=== PATIENT | male | born 1990 | race Hispanic/Latino ===

== ENCOUNTER 2022-12-03 16:52 | Inpatient (IN) | payer SELFPAY ==
[~2022-12-03] VITALS: Ht 165.1 cm; Wt 81.2 kg
[2022-12-03] VITALS (8 sets, daily range): BP systolic 110–140; BP diastolic 65–103
--- NOTE | 2022-12-03 17:20 | NUR ---
PATIENT ARRIVED BY EMS TO ROOM 15. NORMAL SALINE INITIATED.
[2022-12-03 17:24] LABS: BASO% 0.4 % (0-3); EOS% 0.9 % (0-8); HEMATOCRIT 41.8 % (39.0-50.0); HEMOGLOBIN 13.5 g/dl (14.0-18.0); IMMATURE GRANULOCYTES 4.5 % (0.0-5.0); LYMPH% 16.3 % (15-41); MEAN CELL VOLUME 80.2 fL CALC (80.0-100.0); MEAN CORPUSCULAR HGB 25.9 pG CALC (26.0-32.0); MEAN CORPUSCULAR HGB CONC 32.3 g/dL CAL (32.0-36.0); MONO% 6.3 % (2-13); NEUT# 5.67 thou/uL (1.82-7.42); NEUT% 71.6 % (42-76); RED BLOOD COUNT 5.21 mill/uL (4.70-6.10); RED CELL DISTRI WIDTH 14.1 % (11.5-15.5)
[2022-12-03 17:34] LABS: ALBUMIN 4.4 g/dL (3.2-5.0); ALKALINE PHOSPHATASE 70 u/l (38-126); ANION GAP 16 (6-22 (CALC)); BUN 10 mg/dL (9-20); BUN/CREATININE RATIO 9 (12-20 (CALC)); CARBON DIOXIDE 20 mmol/l (22-30); CHLORIDE 109 mmol/l (95-108); CPK 403 u/l (55-170); CREATININE 1.1 mg/dL (0.7-1.3); GFR FOR AFR.AMER. > 60 ML/MIN (>=60 (CALC)); GFR OTHER RACES > 60 ML/MIN (>=60 (CALC)); POTASSIUM 3.8 mmol/l (3.5-5.1); SGOT/AST 85 u/l (17-59); SODIUM 141 mmol/l (137-146); TOTAL PROTEIN 7.4 g/dL (6.3-8.2)
--- NOTE | 2022-12-03 18:29 | NUR ---
SECOND LITER OF NS OUMAR AT THIS TIME. PATIENT IS MORE COMFORTABLE.
--- NOTE | 2022-12-03 19:00 | NUR ---
REPORT RECEIVED FROM CASSANDRA SLOAN. ASSESSED AND PT C/O BILATERAL LOWER EXTREMITIES ARE STILL CRAMPING AND CAUSING PAIN, MD MADE AWARE. PT ON MONITOR WITH VSS. WILL CONTINUE TO MONITOR.
[2022-12-03 19:22] LABS: URINE BILIRUBIN - DIPSTICK NEGATIVE (NEGATIVE); URINE COLOR YELLOW; URINE GLUCOSE - DIPSTICK NEGATIVE (NEGATIVE); URINE KETONE NEGATIVE (NEGATIVE)
[2022-12-03 19:23] LABS: URINE BLOOD DIPSTICK SMALL (NEGATIVE); URINE LEUK ESTERASE NEGATIVE (NEGATIVE); URINE NITRITE - DIPSTICK NEGATIVE (Negative); URINE PH 5.5 (4.5-8.0); URINE PROTEIN - DIPSTICK NEGATIVE (NEG-TRACE); URINE SPECIFIC GRAVITY 1.015; URINE UROBILINOGEN - DIPSTICK 0.2 E.U./dL (0.2)
[2022-12-03 19:28] LABS: URINE HYALINE CAST FEW lpf (NONE-RARE); URINE RBC 0-2 RBC/hpf (0-5)
--- NOTE | 2022-12-03 20:30 | NUR ---
CALLED AND ATTEMPTED TO GIVE TO RECEIVING RN ON MS. RN ASSISTING PT AT THIS TIME AND WILL CALL BACK SOON SHE CAN. WILL CONTINUE TO MONITOR.
--- NOTE | 2022-12-03 21:05 | NUR ---
REPORT GIVEN TO CARITO RN AND PT TRANSFERED TO MS RM 263 BY WC WITH NAD, BP 133/86, HR 70, RR 18.
--- NOTE | 2022-12-03 21:10 | NUR ---
PATIENT ADMITTED TO ROOM VIA WC. PATIENT AMBULATED SELF TO BED AND RESTROOM. STEADY ON FEET. VOIDED. ALERT AND ORIENTED. TUNISIAN SPEAKING, UNDERSTANDS LITTLE SRI LANKAN. OTHER MS NURSE IN ROOM TO HELP TRANSLATE. PAIN/CRAMPING TO BLE. SEE EMAR FOR MEDICATION DETAILS. PATIENT ORIENTED TO ROOM, CALL GIRALDO AND SURROUNDINGS. CALL GIRALDO AND WATER IN REACH.
--- NOTE | 2022-12-03 23:28 | NUR ---
CALLED PIECE DYEING MACHINE TENDER PROVIDER. INFORMED OF PATIENTS BLE PAIN CONTINUING EVEN AFTER PATIENT WAS MEDICATED. INFORMED PROVIDER OF WHAT PRESCRIBED MEDICATION WAS GIVEN ALREADY. PROVIDER ORDERED TO HAVE IVF INCREASED FROM 150ML/HR TO 200ML/HR. PROVIDER GAVE NO OTHER NEW ORDERS AND VOICED HE WOULD BE HERE AT 0600/0700 TO REEVALUATE PATIENT.
--- NOTE | 2022-12-04 03:12 | NUR ---
PATIENT SITTING ON THE SIDE OF THE BED. NO DISTRESS. PATIENT VOICED PAIN IS LITTLE AT THIS TIME. WILL CONTINUE TO MONITOR PATIENT.
[2022-12-04 04:37] VITALS: BP 142/82
--- NOTE | 2022-12-04 07:00 | NUR ---
RECEIVED BEDSIDE REPORT FROM LUTHER GRACIA. PT RESTING IN BED. ENDORSES PAIN IN BILATERAL CALVES. LEGS ARE HOT AND MUSCLES ARE KNOTTED AND PROTRUDING. ORDERED GATORADE FROM KITCHEN AND PLACED WARM PACKS ON BOTH LEGS. ENCOURAGED PT TO TRY TO RELAX THROUGH THE CRAMPING. MD AWARE. NO ORDERS.
[2022-12-04 07:11] VITALS: BP 141/82
[2022-12-04 11:57] VITALS: BP 135/82
--- NOTE | 2022-12-04 13:08 | NUR ---
was able to use copy chief program to speak to pt in detail. pt is [id number]. no substance or alcohol use. 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 was playing basketball with his friends in the unusually hot afternoon and did not adequately hydrate or cool down. once he sat down to rest his calves (bilateral) began to cramp and he was unable to get the muscles to relax. when the pain became unbearable he came to the hospital. pt states that the pain medicine did not work, but that it is better now than it was last night and this morning. pt has received 5 liters of NS and rn assisted in theraputic stretching of the muscles and warm compresses. rn ordered gatorade for all of pt's meals. muscles feel softer and more malleable than at 8:00 assessment, but are still noticeably hard and knotted.
[2022-12-04 15:14] LABS: ANION GAP 14 (6-22 (CALC)); BUN 9 mg/dL (9-20); BUN/CREATININE RATIO 10 (12-20 (CALC)); CARBON DIOXIDE 25 mmol/l (22-30); CHLORIDE 102 mmol/l (95-108); CREATININE 0.8 mg/dL (0.7-1.3); GFR FOR AFR.AMER. > 60 ML/MIN (>=60 (CALC)); GFR OTHER RACES > 60 ML/MIN (>=60 (CALC)); POTASSIUM 4.1 mmol/l (3.5-5.1); SODIUM 137 mmol/l (137-146)
[2022-12-04 16:00] VITALS: BP 136/79
[2022-12-04 18:50] VITALS: BP 145/81
--- NOTE | 2022-12-04 20:00 | NUR ---
RECEIVED REPORT FROM NURSE BEATRIZ PATIENT ALERT ORIENTED ABLE TO MAKE NEEDS KNOWN, PATIENT HONDURAN SPEAKING , PATIENT IV ON RAC G 20 LR AT 250CC/HR INFUSING WELL, ENCOURAGED PATIENT IN HYDRATION, GATORADE PROVIDE, PATIENT STILL C/O PAIN ON BILAT CALVES PS 6/10, ROBAXIN GIVEN, WILL REEVALUATE, CALL LIGHT IN REACH.
--- NOTE | 2022-12-04 23:12 | NUR ---
PATIENT STILL GHAVING RT LEG PAIN, CALLED RAIL SWITCHMAN MD AWAITING FOR ORDERS.
--- NOTE | 2022-12-05 03:45 | NUR ---
PATIENT RESTING IN BED, NOT IN DISTRESS, BREATHING EVEN UNLABORED,CALL LIGHT IN REACH.
[2022-12-05 04:38] VITALS: BP 142/87
[2022-12-05 06:13] LABS: HEMATOCRIT 42.8 % (39.0-50.0); HEMOGLOBIN 14.2 g/dl (14.0-18.0); MEAN CELL VOLUME 81.2 fL CALC (80.0-100.0); MEAN CORPUSCULAR HGB 26.9 pG CALC (26.0-32.0); MEAN CORPUSCULAR HGB CONC 33.2 g/dL CAL (32.0-36.0); RED BLOOD COUNT 5.27 mill/uL (4.70-6.10); RED CELL DISTRI WIDTH 14.1 % (11.5-15.5)
[2022-12-05 06:24] LABS: ALBUMIN 4.4 g/dL (3.2-5.0); ALKALINE PHOSPHATASE 83 u/l (38-126); ANION GAP 11 (6-22 (CALC)); BUN 6 mg/dL (9-20); BUN/CREATININE RATIO 8 (12-20 (CALC)); CARBON DIOXIDE 30 mmol/l (22-30); CHLORIDE 98 mmol/l (95-108); CREATININE 0.8 mg/dL (0.7-1.3); GFR FOR AFR.AMER. > 60 ML/MIN (>=60 (CALC)); GFR OTHER RACES > 60 ML/MIN (>=60 (CALC)); POTASSIUM 3.9 mmol/l (3.5-5.1); SODIUM 136 mmol/l (137-146); TOTAL PROTEIN 7.4 g/dL (6.3-8.2)
[2022-12-05 06:28] LABS: BILIRUBIN, TOTAL 1.7 mg/dL (0.2-1.3); SGOT/AST 616 u/l (17-59)
--- NOTE | 2022-12-05 07:27 | NUR ---
PT RESTING IN BED UPON ENTERING ROOM STATES PAIN IN LOWER EXTREMETIES 07/08 ICE PACK PROVIDED. EDUCATED ICE PACK USAGE. MEDICATED ALSO, SEE EMAR. PT a&OX3. PT ABLE TO OBEY COMMANDS. FALL/SAFTEY PRECAUITON IN PLACE. CALL LIGHT WITHIN REACH.
[2022-12-05 07:59] VITALS: BP 145/87
--- NOTE | 2022-12-05 11:59 | NUR ---
PT EATING LUNCH. FLUIDS ENCOURAGED. STATES NO QUESTIONS/CONCERNS AT THIS TIME. FALL/SAFTEY PRECAUITON IN PLACE. CALL LIGHT WITHIN REACH.
[2022-12-05 17:22] VITALS: BP 134/88
--- NOTE | 2022-12-05 19:33 | NUR ---
REPORT RECEIVED FROM Shonna SORIA RN
--- NOTE | 2022-12-05 20:00 | NUR ---
PATIENT ASSESSMENT COMPLETED AT THIS TIME. PATIENT RESTING IN BED, DENIES ANY CURRENT PAIN. CALL LIGHT AND BEDSIDE TABLE WIITHIN REACH.
[2022-12-05 21:52] VITALS: BP 131/79
--- NOTE | 2022-12-06 | NUR ---
PATIENT RESTING IN BED, DENIES ANY CURRENT PAIN/DISCOMOFORT. ICE BAGS REFILLED WITH ICE PER REQUEST. PATIENT STATES THE ICE HELPS WITH THE CRAMPING. CALL LIGHT AND BEDSIDE TABLE WITHIN REACH.
--- NOTE | 2022-12-06 04:00 | NUR ---
PATIENT RESTING IN BED. NO APPARENT DISTRESS NOTED. RESPIRATIONS EVEN AND UNLABORED. RISE AND FALL OF CHEST NOTED. CALL LIGHT AND BEDSIDE TABLE WITHIN REACH.
[2022-12-06 04:31] VITALS: BP 140/81
[2022-12-06 05:24] LABS: BASO% 0.2 % (0-3); EOS% 0.2 % (0-8); HEMOGLOBIN 14.5 g/dl (14.0-18.0); IMMATURE GRANULOCYTES 0.6 % (0.0-5.0); LYMPH% 15.8 % (15-41); MEAN CELL VOLUME 81.7 fL CALC (80.0-100.0); MEAN CORPUSCULAR HGB 26.3 pG CALC (26.0-32.0); MEAN CORPUSCULAR HGB CONC 32.2 g/dL CAL (32.0-36.0); MONO% 7.6 % (2-13); NEUT# 9.48 thou/uL (1.82-7.42); NEUT% 75.6 % (42-76); RED BLOOD COUNT 5.51 mill/uL (4.70-6.10); RED CELL DISTRI WIDTH 14.1 % (11.5-15.5)
[2022-12-06 05:41] LABS: ALBUMIN 4.1 g/dL (3.2-5.0); ALKALINE PHOSPHATASE 90 u/l (38-126); ANION GAP 11 (6-22 (CALC)); BILIRUBIN, TOTAL 1.6 mg/dL (0.2-1.3); BUN 7 mg/dL (9-20); BUN/CREATININE RATIO 8 (12-20 (CALC)); CARBON DIOXIDE 29 mmol/l (22-30); CHLORIDE 101 mmol/l (95-108); CREATININE 0.8 mg/dL (0.7-1.3); GFR FOR AFR.AMER. > 60 ML/MIN (>=60 (CALC)); GFR OTHER RACES > 60 ML/MIN (>=60 (CALC)); POTASSIUM 3.8 mmol/l (3.5-5.1); SGOT/AST 724 u/l (17-59); SODIUM 137 mmol/l (137-146); TOTAL PROTEIN 7.7 g/dL (6.3-8.2)
[2022-12-06 06:10] LABS: CPK 31850 u/l (55-170)
[2022-12-06 06:34] VITALS: BP 143/83
--- NOTE | 2022-12-06 08:00 | NUR ---
PATIENT STATED FEELING BETTER BUT STILL HAS LEG CRAMPS. IV FLUIDS STILL ON GOING. ENCOURAGED ORAL HYDRATION. WILL CONTINUE TO MONITOR.
[2022-12-06 13:30] LABS: BASO% 0.3 % (0-3); EOS% 0.2 % (0-8); HEMATOCRIT 44.3 % (39.0-50.0); HEMOGLOBIN 14.4 g/dl (14.0-18.0); IMMATURE GRANULOCYTES 0.7 % (0.0-5.0); LYMPH% 13.2 % (15-41); MEAN CELL VOLUME 82.5 fL CALC (80.0-100.0); MEAN CORPUSCULAR HGB 26.8 pG CALC (26.0-32.0); MEAN CORPUSCULAR HGB CONC 32.5 g/dL CAL (32.0-36.0); MONO% 6.7 % (2-13); NEUT# 8.33 thou/uL (1.82-7.42); NEUT% 78.9 % (42-76); RED BLOOD COUNT 5.37 mill/uL (4.70-6.10); RED CELL DISTRI WIDTH 14.3 % (11.5-15.5)
[2022-12-06 13:35] LABS: SGOT/AST 722 u/l (17-59)
[2022-12-06 13:59] LABS: CPK 29375 u/l (55-170)
[2022-12-06 14:52] VITALS: BP 141/91
--- NOTE | 2022-12-06 15:30 | NUR ---
Discharge instructions given. Patient verbalizes understanding of same. Discharged in stable condition via Wheelchair to Home with family. All belongings sent with pt.
== END 2022-12-06 15:25 | disposition home or self-care (01) | DRG 558 ==
LOC: ED 16:52 → ED-I 19:45 → ED 20:01 → MS2 20:02
PROVIDERS: Family Medicine; Nurse Practitioner Family; ADMIT Student in an Organized Health Care Education/Training Program; ATTEND Student in an Organized Health Care Education/Training Program
DX: M62.82 Rhabdomyolysis (principal); E86.0 Dehydration